=== PATIENT | female | born 1940 | race Caucasian/White ===

== ENCOUNTER 2019-05-10 09:26 | Inpatient (IN) | payer MEDICARE, SELFPAY ==
[2019-05-10] VITALS (26 sets, daily range): BP systolic 149–194; BP diastolic 75–104; PULSE 76–95; RESP 12–24; TEMP 36.4–37.1; O2SAT 95–100; BMI 33.6
--- NOTE | ~2019-05-10 | MR_ITS ---
EXAMINATION: MR brain/brain stem wo/w con EXAM DATE: 05/11/2019 13:04 INDICATION: Slurred speech. Transient ischemic attack. TECHNIQUE: Magnetic resonance imaging (MRI) of the brain/brain stem obtained without contrast. Sagit sheila T1, axial diffusion, gradient echo (T2*), T1, T2, FLAIR sequences obtained. Patient was then inj ected with 19 cc intravenous Multihance contrast. Axial and coronal postcontrast T1 weighted sequence s obtained. There is no prior study for comparison. FINDINGS: Scattered small acute left occipital parietal lobe infarctions. There is no acute hemorrhag e seen on the T2*, a hemosiderin sensitive sequence. No intraparenchymal brain mass lesion. Dilated perivascular spaces. There is mild periventricular and subcortical T2/FLAIR signal hyperintensity, nonspecific but probably related to small vessel ischemic disease (microangiopathy). There are no e xtra-axial collections. Flow voids are seen in the cerebral arteries on the T2-weighted sequences co nsistent with their expected patency. The orbits are unremarkable. Soft tissue is unremarkable. IMPRESSION: 1. Scattered small acute left parieto-occipital lobe infarctions. 2. Mild microangiopathy. Reviewed, dictated and finalized at location A. ORATE AUDITOR
--- NOTE | ~2019-05-10 | US_ITS ---
EXAMINATION: US abdomen complete DATE: 05/12/2019 07:56 INDICATION: Abnormal liver function tests. TECHNIQUE: Multiple grayscale and Doppler ultrasound images of the abdomen were obtained. COMPARISON: CT abdomen and pelvis 05/01/2018 FINDINGS: The visualized portions of the head and body of the pancreas are normal. There is diffuse h epatic steatosis. There is normal flow in main portal vein. The gallbladder is absent. The common bishnu t is dilated to 14 mm. The spleen is normal in size. The kidneys are normal in size. Inferior vena ca va is normal. Abdominal aorta is normal in caliber. IMPRESSION: 1. Diffuse hepatic steatosis. 2. Dilated common duct measuring 14 mm, worsened from 11 mm on 05/01/2018, likely not clinically signi ficant given the normal total bilirubin and alkaline phosphatase on 05/11/2019. Reviewed, dictated and finalized at location A. CLEANING MACHINE TENDER IMPRESSION: 1. Diffuse hepatic steatosis. 2. Dilated common duct measuring 14 mm, worsened from 11 mm on 05/01/2018, likel y not clinically significant given the normal total bilirubin and alkaline phos phatase on 05/11/2019.
--- NOTE | ~2019-05-10 | US_ITS ---
EXAMINATION: US carotid duplex BI EXAM DATE: 05/10/2019 14:15 INDICATION: Speech impairment. Transient ischemic attack. TECHNIQUE: Grayscale, color and pulsed Doppler images of the cervical carotid arteries were obtained . The degree of vessel stenosis is placed in one of the following categories: normal, <50% stenosis, 50-69% stenosis, >=70% stenosis but less than near-occlusion, near-occlusion, or occlusion. Note that percent stenosis relative to normal distal artery lumen diameter is indirectly measured from velocit y measurements as described by Mc, et al. Radiology 2003; 229:340-346. There is no prior study fo r comparison. FINDINGS: RIGHT SIDE: Right common carotid artery peak systolic velocity (PSV in cm/s): 59 Right bulb/internal carotid artery peak systolic velocity (PSV in cm/s): 91 Right internal carotid artery end diastolic velocity (EDV in cm/s): 30 Right ICA/CCA peak systolic ratio: 1.5 Right external carotid artery peak systolic velocity (PSV in cm/s): 69 Right vertebral artery antegrade flow: yes There is no focal plaque identified. LEFT SIDE: Left common carotid artery peak systolic velocity (PSV in cm/s): 57 Left bulb/internal carotid artery peak systolic velocity (PSV in cm/s): 67 Left internal carotid artery end diastolic velocity (EDV in cm/s): 25 Left ICA/CCA peak systolic ratio: 1.2 Left external carotid artery peak systolic velocity (PSV in cm/s): 116 Left vertebral artery antegrade flow: yes There is no focal plaque identified. IMPRESSION: 1. Normal right internal carotid artery. 2. Normal left internal carotid artery. Reviewed, dictated and finalized at location A. INTAKE WORKER
--- NOTE | ~2019-05-10 | CT_ITS ---
EXAMINATION: CT brain wo con EXAM DATE: 05/10/2019 10:04 INDICATION: Slurred speech. TECHNIQUE: Spiral CT of the head was performed without contrast. Axial, coronal and sagittal images were reviewed. The dose-length product (DLP) for this examination was 605.33 mGy-cm. The exposure w as tailored according to patient size, and iterative reconstruction (ASIR) was used as additional dos e reduction technique. There is no prior study for comparison. FINDINGS: There is no acute intraparenchymal hemorrhage. No evidence of intraparenchymal brain mass lesion. No evidence of acute infarction. Please note that initial head CT has limited sensitivity f or small or acute infarctions. There is moderate periventricular and subcortical hypodensity, nonspec ific but probably related to small vessel ischemic disease. There is mild prominence of the sulci a nd ventricles related to cerebral atrophy. There is intracranial carotid arteriosclerosis. There a re no extra-axial collections. There is no mass effect or midline shift. The orbits are unremarkabl e. Soft tissue is unremarkable. The visualized sinuses and mastoid air cells are well aerated. IMPRESSION: 1. No acute intracranial findings. 2. Chronic age related findings. Reviewed, dictated and finalized at location A. CULTURAL SERVICE WORKER
--- NOTE | 2019-05-10 09:37 | ED.NEUROSD ---
HPI - Neuro Symptoms/Deficit General Chief Complaint: Neuro Symptoms/Deficit Stated Complaint: Poss CVA Time Seen by Provider: 05/10/19 09:36 Source: patient and RN notes reviewed Mode of arrival: ambulatory Limitations: no limitations History of Present Illness HPI Narrative: Pt is a 79 y/o female who presents to the ED with c/o difficulty with speech which began at 0800 this morning. Pt states she woke up at 0700 this morning to feed her cats and was at baseline. She was able to to speak and ambulate at 0700 this morning. Pt reports she went back to bed shortly after. However, she states she woke up again at 0800 this morning, but this time was unable to speak. She states she was having difficulty forming words. Pt reports she went to bed again shortly after and woke again at 0900 with improving symptoms. She states she was able to speak again, but is still not at baseline. Pt reports a sensation of a hot spot in her head located at the left-sided ventral side of her head. She states she typically has these episodes of pain in her head similar to this, however, pt reports this current episode feels as there is a bleed occurring. She reports SOB for the past week and a headache, but denies vision changes, chest pain, nausea, vomiting, or numbness in her BLE or BUE. Onset (ago): hour(s) (0800 this morning) Time: 08:00 Last Observed Normal: 07:00 Timing confirmed by: spouse Location: speech History of same: No Quality: improving (improved since onset) Relieving factors: time Exacerbating factors: none Context: sudden onset (awoke with symptoms at 0800) On Anticoagulants: No Associated symptoms: headaches and shortness of breath Related Data Allergies Allergy/AdvReac Type Severity Reaction Status Date / Time Penicillins Allergy Unknown Verified 08/17/11 10:47 Review of Systems Review of Systems: All systems reviewed & are unremarkable except as noted in HPI and below Eyes: Eyes: Denies change in vision Cardiovascular: Cardiovascular: Denies chest pain Respiratory: Respiratory: Reports dyspnea Gastrointestinal: Gastrointestinal: Denies nausea and Denies vomiting Neurologic: Reports Abnormal speech present (difficulty with formulating words), Reports headache(s) and Denies other (numbness in BLE or BUE) PMFSH Past Medical History Medical History (Updated 05/10/19 @ 14:47 by Teresa Urena MD) Depression Diabetes Expressive aphasia Hyperlipidemia Hypertension PVCs (premature ventricular contractions) Right nephrolithiasis Shingles Surgical History Surgical History (Updated 05/10/19 @ 13:43 by Savannah Sommers NP) H/O cystoscopy With placed stent H/O: hysterectomy History of renal stent On the right secondary to kidney stone. Hx of cholecystectomy Laparoscopic 2011 Family History Family History (Updated 05/10/19 @ 13:46 by Savannah Sommers NP) Mother Acute myocardial infarction Diabetes mellitus Hypertension Son Acute myocardial infarction Daughter Thyroid disease Father Cerebrovascular accident Social History Social History (Updated 05/10/19 @ 13:48 by Savannah Sommers NP) Social History: The patient lives with her in [place]. She designates her as her durable power bankruptcy attorney for healthcare. She desires to be a full code. Lifelong nonsmoker. No drug use. She denies any alcohol use. 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 children better son . Smoking status: Never smoker Second hand tobacco smoke exposure: Yes Substance use: never Living arrangements: with family Occupation/Education: retired Gender identity (if verbalized by the patient): Female Comments PCP: Dr. Cornelius Li at [facility] Exam Const: General: cooperative, no acute distress and alert Nutritional Appearance: well nourished Orientation/consciousness: patient oriented x3 Limitations: no limitations HENMT: Mouth: Yes lip normal and Yes moist mucous membranes Eyes
--- NOTE | 2019-05-10 09:50 | ECG_ITS ---
Measurements Intervals [place] Rate: 84 P: 28 CA: 161 QRS: -14 QRSD: 92 T: 19 QT: 358 QTc: 425 Interpretive Statements SINUS RHYTHM DELAYED PRECORDIAL R/S TRANSITION BORDERLINE ECG Electronically Signed On 05-10-2019 10:04:45 MONEY ORDER CLERK by Michele Knapp D.O.
[2019-05-10] MEDS: hydrALAZINE HCL 20 MG/ML VIAL 10 MG IV PUSH (09:53)
[2019-05-10 10:00] LABS: Glucose Point of Care 153 (65-105)
[2019-05-10 10:48] LABS: Basophils Absolute Auto 0.1 K/mm3 (0.0-0.1); Eosinophils Absolute Auto 0.1 K/mm3 (0-0.3); Eosinophils Percent Auto 2.6 % (0-4.4); Hematocrit 46.8 % (37.0-47.0); Hemoglobin 15.4 g/dL (12.0-15.0); Immature Granulocyte Absolute 0.06 K/mm3 (0.00-0.031); Immature Granulocyte Percent A 1.2 % (0-0.5); Lymphocytes Absolute Auto 1.71 K/mm3 (0.9-3.2); Lymphocytes Percent Auto 34.2 % (18.3-44.2); Mean Corpuscular HGB Conc 32.9 g/dl (32-36); Mean Corpuscular Hemoglobin 29.7 pg (26-34); Mean Corpuscular Volume 90.3 fl (80-100); Mean Platelet Volume 10.9 fl (7.4-10.4); Monocytes Absolute Auto 0.4 K/mm3 (0.1-0.6); Monocytes Percent Auto 8.6 % (2.6-8.5); Neutrophils Absolute Auto 2.6 K/mm3 (1.3-6.7); Neutrophils Percent Auto 52.4 % (45.5-73.1); Platelet Count Result 205 k/mm3 (150-375); Red Blood Count 5.18 M/mm3 (4.2-5.4)
[2019-05-10 11:01] LABS: Alanine Aminotransferase 103 U/L (4-35); Albumin Level 4.4 g/dL (3.5-5.1); Alkaline Phosphatase 78 U/L (38-126); Aspartate Amino Transferase 72 U/L (14-36); Bilirubin,Total 0.4 mg/dL (0.2-1.3); Blood Urea Nitrogen 15 mg/dL (7-17); Calcium 9.4 mg/dL (8.4-10.2); Carbon Dioxide 21 mmol/L (22-30); Chloride 105 mmol/L (98-107); Estimated CRCL calculation 78 ml/min; Estimated Glomerular Filt Rate > 60; Glucose 164 mg/dL (65-105); INR 0.9; Prothrombin Time 12.3 Seconds (11.1-14.7); Sodium 137 mmol/L (137-145)
[2019-05-10 11:02] LABS: Partial Thromboplastin Time 25.4 SECONDS (22.3-36.8)
[2019-05-10 11:46] LABS: Add Urine Microscopic? NO; Appearance Urine Clear (Clear); Bilirubin Urine Negative (Negative); Blood Urine Negative (Negative); Color Urine Straw (Yellow); Glucose Urine UA Negative (Negative); Ketones Urine Negative (Negative); Leukocyte Esterase Ur Negative LEU/UL (Negative); Nitrate Urine Negative (Negative); Protein Urine Negative (Negative); Specific Grav Ur 1.014 (1.001-1.035); Urobilinogen Urine Negative mg/dL (<2.0)
[2019-05-10] MEDS: ASPIRIN 81 MG CHEWABLE TABLET 324 MG PO (12:19)
--- NOTE | 2019-05-10 13:36 | PM.IMHP ---
H&P: HPI History of Present Illness Chief complaint: TIA Narrative: Sofia Song is a 79 year old female who has had no previous history of any TIAs or CVAs. She is diabetic and also has a history of having hypertension. The patient tells me that her blood pressure is typically under control with lisinopril. The patient woke up at 7:00 a.m. this morning and had no symptoms was normal. She had no symptoms last night either. Patient fell back to sleep at 7:00 a.m. and then woke back up at 8:00 a.m. where she was unable to articulate. Patient went back to sleep and woke back up at 9:00 a.m. the patient stated that her speech was starting to get somewhat better but not back at her baseline. She has some discomfort in her frontal lobe which she stated is a ?hot spot? in her forehead. She was given an aspirin in the emergency room she said that helped with the discomfort somewhat. She has no changes in her vision and no focal weakness. The patient has difficulty articulating at times. Sometimes she can speak in full sentences but otherwise she has word searching. No slurred speech or facial droop. CT of the brain findings. Chronic age related findings. Due to service 05/10/2019. The patient was given aspirin in the emergency room and also IV hydralazine for blood pressure 194/104. Review of Systems Review of Systems: All systems reviewed & are unremarkable except as noted in HPI and below Constitutional: Constitutional: Reports as per HPI and Reports no additional constitutional complaints Eyes: Eyes: Reports as per HPI, Reports no additional eye complaints and Reports other (She has bilateral cataracts that are not yet extracted.) ENT: Reports system reviewed and no additional complaints, except as documented and Reports Normal hearing present Cardiovascular: Cardiovascular: Reports no additional cardiovascular complaints Respiratory: Respiratory: Reports no additional respiratory complaints and Reports no additional respiratory complaints Gastrointestinal: Gastrointestinal: Reports as per HPI and Reports no additional gastrointestinal complaints Musculoskeletal: Musculoskeletal: Reports no additional musculoskeletal complaints Integumentary/Breasts: Skin/Breast: Reports system reviewed and no additional complaints, except as docu and Reports as per HPI Neurologic: Reports system reviewed and no additional complaints, except as documented, Reports as per HPI and Reports Normal hearing present Psychiatric: Psychiatric: Reports no additional psychiatric complaints and Reports as per HPI Endocrine: Endocrine: Reports no additional endocrine complaints Hematologic/Lymphatic: Hematologic/Lymphatic: Reports no additional hematologic/lymphatic complaints Allergic/Immunologic: Allergic/Immunologic: Reports no additional allergic/immunologic complaints [facility] Past Medical History Medical History (Updated 05/10/19 @ 13:51 by Savannah Sommers NP) Depression Diabetes Expressive aphasia Hyperlipidemia Hypertension PVCs (premature ventricular contractions) Right nephrolithiasis Shingles Surgical History Surgical History (Updated 05/10/19 @ 13:43 by Savannah Sommers NP) H/O cystoscopy With placed stent H/O: hysterectomy History of renal stent On the right secondary to kidney stone. Hx of cholecystectomy Laparoscopic 2011 Family History Family History (Updated 05/10/19 @ 13:46 by Savannah Sommers NP) Mother Acute myocardial infarction Diabetes mellitus Hypertension Son Acute myocardial infarction Daughter Thyroid disease Father Cerebrovascular accident Social History Social History (Updated 05/10/19 @ 13:48 by Savannah Sommers NP) Social History: The patient lives with her in [place]. She designates her as her durable power county attorney for healthcare. She desires to be a full code. Lifelong nonsmoker. No drug use. She denies any alcohol use. 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
--- NOTE | 2019-05-10 13:46 | PC.NURSE ---
pt to ultrasound for carotid doppler study
--- NOTE | 2019-05-10 14:50 | ADMGEN ---
This patient, Sofia Song, was admitted to Medical Room 243-01. Patient/family oriented to hospital policies and general routines including ID bracelet, bed and alarms, visiting hours, pain management, procedures, bathroom and other care routines, personal items, smoking policy, room service/diet, and visiting hours. Valuables list has been completed. Information on how to activate the Rapid Response Team has been discussed. Patient/Family are encouraged to report perceived risks to care and to ask questions if they do not understand what they are told or what they should do.
[2019-05-10] MEDS: lisinopriL 20 MG TABLET PO (17:44)
[2019-05-10 18:05] LABS: Glucose Point of Care 141 (65-105)
[2019-05-10] MEDS: ACETAMINOPHEN 325 MG TABLET 650 MG PO (18:22)
[2019-05-10 22:13] LABS: Glucose Point of Care 232 (65-105)
[2019-05-11] VITALS (9 sets, daily range): BP systolic 144–149; BP diastolic 74–80; PULSE 70–82; RESP 16–18; TEMP 36.1–36.5; O2SAT 96–98
[2019-05-11] MEDS: ACETAMINOPHEN 325 MG TABLET 650 MG PO (04:13)
--- NOTE | 2019-05-11 06:00 | ECHO_ITS ---
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 Summary 1. Left ventricular chamber dimension is normal. 2. Left ventricular systolic function is normal, estimated at 65-70%. 3. There is mildly increased left ventricular wall thickness. 4. Left ventricular septal wall motion is normal. 5. The left ventricular diastolic function is grade I diastolic dysfunction. 6. There is mild aortic valve calcification. 7. There is mild mitral valve regurgitation. 8. There is mild tricuspid valve regurgitation. 9. Mild pulmonary hypertension, estimated pulmonary arterial systolic pressure is 37 mmHg. Left Ventricle Left ventricular chamber dimension is normal. Left ventricular systolic function is normal, estimated at 65-70%. There is mildly increased left ventricular wall thickness. Left ventricular septal wall motion is normal. The left ventricular diastolic function is grade I diastolic dysfunction. Right Ventricle Right ventricular chamber dimension is normal. Right ventricular systolic function is normal. Left Atria Left atrial chamber dimension is normal. Right Atria Right atrial chamber dimension is normal. Atrial Septum Intact interatrial septum visualized by color flow imaging. Aortic Valve The aortic valve is trileaflet. There is mild aortic valve sclerosis. There is no aortic valve stenosis. There is trace aortic valve regurgitation. There is mild aortic valve calcification. Pulmonic Valve The pulmonic valve is normal. There is no pulmonic valve stenosis. There is trace pulmonic regurgitation. Mitral Valve The mitral valve has calcified annulus. There is no mitral valve stenosis. There is mild mitral valve regurgitation. Tricuspid Valve The tricuspid valve leaflets are normal. There is no significant tricuspid valve stenosis. There is mild tricuspid valve regurgitation. Mild pulmonary hypertension, estimated pulmonary arterial systolic pressure is 37 mmHg. Pericardium/Pleural The pericardium appears normal. There is no pericardial effusion. Inferior Vena Cava Normal inferior vena cava with <50% collapse upon inspiration consistent with elevated right atrial pressure, 10 mmHg. Aorta The aortic root size at the sinus of Valsalva is normal. Left Ventricular Outflow Tract Name Value Normal LVOT 2D LVOT Diameter 2.0 cm LVOT Doppler LVOT Peak Gradient 7 mmHg LVOT Mean Gradien
[2019-05-11 06:08] LABS: Basophils Percent Auto 0.6 % (0.2-1.2); Eosinophils Absolute Auto 0.1 K/mm3 (0-0.3); Eosinophils Percent Auto 1.6 % (0-4.4); Hematocrit 41.7 % (37.0-47.0); Hemoglobin 13.8 g/dL (12.0-15.0); Immature Granulocyte Absolute 0.02 K/mm3 (0.00-0.031); Immature Granulocyte Percent A 0.3 % (0-0.5); Lymphocytes Absolute Auto 1.87 K/mm3 (0.9-3.2); Lymphocytes Percent Auto 29.6 % (18.3-44.2); Mean Corpuscular HGB Conc 33.1 g/dl (32-36); Mean Corpuscular Hemoglobin 29.8 pg (26-34); Mean Corpuscular Volume 90.1 fl (80-100); Mean Platelet Volume 11.1 fl (7.4-10.4); Monocytes Absolute Auto 0.6 K/mm3 (0.1-0.6); Monocytes Percent Auto 9.5 % (2.6-8.5); Neutrophils Absolute Auto 3.7 K/mm3 (1.3-6.7); Neutrophils Percent Auto 58.4 % (45.5-73.1); Platelet Count Result 200 k/mm3 (150-375); Red Blood Count 4.63 M/mm3 (4.2-5.4); Red Cell Distribution Width 13.2 % (11.5-14.5); White Blood Count 6.3 K/mm3 (4.5-10.0)
[2019-05-11 06:20] LABS: Alanine Aminotransferase 81 U/L (4-35); Albumin Level 3.8 g/dL (3.5-5.1); Alkaline Phosphatase 61 U/L (38-126); Aspartate Amino Transferase 49 U/L (14-36); Bilirubin,Total 0.6 mg/dL (0.2-1.3); Blood Urea Nitrogen 15 mg/dL (7-17); Carbon Dioxide 19 mmol/L (22-30); Chloride 108 mmol/L (98-107); Estimated CRCL calculation 67 ml/min; Estimated Glomerular Filt Rate > 60; Glucose 157 mg/dL (65-105); Sodium 138 mmol/L (137-145)
[2019-05-11 06:28] LABS: Hemoglobin A1C 7.2 % (<5.7)
[2019-05-11] MEDS: ASPIRIN 81 MG ENTERIC TABLET PO (08:25)
[2019-05-11] MEDS: lisinopriL 20 MG TABLET PO (08:25)
[2019-05-11 08:31] LABS: Glucose Point of Care 135 (65-105)
[2019-05-11 11:46] LABS: Glucose Point of Care 185 (65-105)
--- NOTE | 2019-05-11 13:51 | PM.IMPN ---
Progress Note: A&P Assessment and Plan (1) Expressive aphasia: Code(s): R47.01 - Aphasia Status: Acute Assessment and Plan: Likely secondary to CVA, pt has had stroke work up completed MRI brain, echo, US carotids. Awaiting speech theraphy and neurology consult. Pt can be increased to full dose ASA and home medications to be restarted. (2) Hypertension: Code(s): I10 - Essential (primary) hypertension Status: Chronic Assessment and Plan: Bp appears better on lisinopril 20mg po qdaily, IV hydralazine prn also ordered. BP appears more stable today. (3) Diabetes: Code(s): E11.9 - Type 2 diabetes mellitus without complications Status: Chronic Assessment and Plan: Sliding scale insulin, Aic is 7.2 Pt is on metformin continue home medications. (4) Hyperlipidemia: Code(s): E78.5 - Hyperlipidemia, unspecified Status: Chronic Assessment and Plan: Continue with home medications. Pt is on rosuvastatin 10mg po qdaily from home list, i will restart this. (5) Stroke: Code(s): I63.9 - Cerebral infarction, unspecified Status: Acute Assessment and Plan: MRI brain is positive for small acute left parieto-occipital lobe infarctions. Pt us carotids are negative, ECHO shows EF of 65% grade 1 diastolic heart failure. Pt awaiting neurology consultation. Pt awaiting speech theraphy. Bp is 147/ 80 today, much improved. Pt still feels her speech is not clear at times. Hopeful discharge home tomorrow, as pt still feels speech problems today. Subjective Date/time seen: 05/11/19 13:51 Interval history: Sofia Song is a 79 year old female who has had no previous history of any TIAs or CVAs. She is diabetic, also has history of htn and hld. Pt states she felt pain in the left side of her face and eye and found difficulty articulating words yesterday around 9 am, pts bp was also found to be high on admission. Pt otherwise denies focal weakness of her arms or legs. or any swallow problems. Pts MRI brain is positive for small acute left parieto-occipital lobe infarctions. Pt us carotids are negative, ECHO shows EF of 65% grade 1 diastolic heart failure. Pt awaiting neurology consultation. Pt awaiting speech theraphy. Bp is 147/ 80 today. Review of Systems Review of Systems: All systems reviewed & are unremarkable except as noted in HPI and below Cardiovascular: Cardiovascular: Denies no additional cardiovascular complaints Respiratory: Respiratory: Denies no additional respiratory complaints Gastrointestinal: Gastrointestinal: Denies no additional gastrointestinal complaints Neurologic: Reports Abnormal speech present, Denies confusion, Denies vertigo, Reports headache(s), Denies focal weakness, Denies paresthesias, Denies tremor(s) and Denies weakness Psychiatric: Psychiatric: Denies anxiety and Denies confusion Exam Const: General: cooperative and healthy appearing; No in distress Nutritional Appearance: overweight Orientation/consciousness: oriented to person HENMT: Head: normal to inspection Resp: Effort & Inspection: no respiratory distress Auscultation: no rhonchi and no wheezes Cardio: Rate: regular rate Rhythm: regular rhythm GI: Inspection: normal to inspection GI Palp: No abdominal tenderness, No Guarding due to palpation present (GI) and No Hepatomegaly present Auscultation: normal bowel sounds Neuro: General: oriented to person, tone normal, no focal motor deficits and No confusion Cranial nerves: Yes Equal, round and reactive pupils present Speech: aphasia (expressive aphasia earlier today ) Motor exam (neuro): 5/5 motor strength present throughout Sensory Exam: normal sensation Objective Data Vital Signs Vital Signs: Vital Signs - 24 hr 05/10/19 14:31 05/10/19 15:01 05/10/19 15:21 Temperature 37.1 C Pulse Rate 78 78 76 Respiratory Rate 16 18 Blood Pressure 160/98 H 175/82 H Pulse Oximetry 99 100 05/10/19
--- NOTE | 2019-05-11 14:57 | CONS_ITS ---
DATE OF CONSULTATION: HISTORY: This 79 years old right-handed female has been admitted to [facility] through the emergency room for the complaints of uncontrolled blood pressure. The patient does have ongoing history of diabetes mellitus and hypertension. She woke up in the morning with no symptomatology, but she fell back to sleep at 7:00 a.m. and then woke back at 8 a.m. when she was unable to articulate. Her speech was starting to get somewhat better subsequently, but not still to the baseline. She complained of discomfort in her head, just like a hot spot in her forehead. She was given aspirin in the emergency room. She has no history of changes in her vision. No history of weakness of 1 side or other side. She was able to speak in full sentences. CT of the brain was done in the emergency room, which was negative. She was given aspirin in the ER along with the IV hydralazine for the control of the blood pressure. Rest of the history was unremarkable. PAST HISTORY: She does have ongoing history of 1. Depression. 2. Diabetes mellitus. 3. Hyperlipidemia. 4. Hypertension. 5. Premature ventricular contraction. 6. Right nephrolithiasis. 7. Shingles. SURGICAL HISTORY: In the past, she has undergone hysterectomy, cholecystectomy, and renal stent for the renal stone in addition to the laparoscopic cholecystectomy. SOCIAL HISTORY: She is a never smoker. Does not drink. ALLERGIES: SHE IS ALLERGIC TO PENICILLIN. PHYSICAL EXAMINATION: VITAL SIGNS: Evaluation revealed her to be afebrile with pulse of 95, respiration 20, blood pressure 194/104. GENERAL: Physical examination was normal. HEENT: Head normocephalic with no cranial bruit. Ear, nose, throat examination was normal. NECK: Supple with no cervical bruit. No thyromegaly. No lymphadenopathy. HEART: Regular. LUNGS: Clear. ABDOMEN: Soft. NEUROLOGICAL: She was awake, alert, and oriented x3. Speech not dysphasic, not dysarthric, not dysphonic. Pupils round, regular. Esparza of vision full. Extraocular movements full. Face symmetrical. Tongue midline. Motor examination revealed her to have fairly normal strength in upper and lower extremities. Reflexes symmetrical. Plantars downgoing. No evidence of gross sensory or cerebellar deficit. LABORATORY DATA: Evaluation up until now included the CT scan of the head, which was negative for the bleed. Doppler study of the carotid negative bilaterally, at present she is receiving metformin, lisinopril, and calcium carbonate with vitamin D. IMPRESSION: Most likely transient ischemic attack, but we will obtain the further studies and then accordingly. MYLES VASQUEZ M.D. DRAFTING LAYOUT WORKER DRAFTING LAYOUT WORKER D I MT: [place]
[2019-05-11] MEDS: metFORMIN HCL XR 500 MG TAB.SR.24H PO (15:54)
[2019-05-11] MEDS: ROSUVASTATIN 10 MG TABLET PO (15:54)
[2019-05-11] MEDS: ASPIRIN 325 MG TABLET PO (15:54)
[2019-05-11 19:24] LABS: Glucose Point of Care 117 (65-105)
[2019-05-11 20:58] LABS: Glucose Point of Care 208 (65-105)
[2019-05-12] VITALS: PULSE 70
[2019-05-12 04:00] VITALS: PULSE 67
[2019-05-12 06:00] VITALS: BP 129/72; PULSE 77; RESP 20; TEMP 35.8; O2SAT 99
[2019-05-12 08:00] VITALS: PULSE 96
[2019-05-12 08:40] LABS: Blood Urea Nitrogen 16 mg/dL (7-17); Calcium 9.4 mg/dL (8.4-10.2); Carbon Dioxide 22 mmol/L (22-30); Chloride 105 mmol/L (98-107); Estimated CRCL calculation 67 ml/min; Estimated Glomerular Filt Rate > 60; Glucose 154 mg/dL (65-105); Sodium 142 mmol/L (137-145)
[2019-05-12 09:20] LABS: Glucose Point of Care 151 (65-105)
[2019-05-12 10:11] LABS: Cholesterol 194 mg/dL (0-200); HDL Direct 50 mg/dL; Triglycerides 202 mg/dL (<150)
[2019-05-12 10:22] LABS: LDL Cholesterol Direct 109 mg/dL
--- NOTE | 2019-05-12 10:48 | PM.CNCAR ---
Assessment and Plan Additional Plan 79-year-old lady with hypertension and diabetes presenting 48 hours ago with neurological symptoms and evidence of a small ischemic CVA on MRI. There is very low risk that this is a cardioembolic event in my opinion she is in sinus rhythm has no evidence of atrial fibrillation no structural cardiac abnormalities on transthoracic echo. Gilberto in my opinion would be a very low yield exam and is not necessary unless she has recurrent events despite anti-platelet therapy. It should be noted that she was not taking her aspirin at the time of this event. Would initiate anti-platelet therapy either with aspirin or clopidogrel and she should be followed by her PCP was currently a at the [facility] [place]. If you have questions regarding this opinion please let me Dario Bergman MD [facility] History of Present Illness History of Present Illness Consult date/time: Date of service: 05/12/19 10:48 Reason For Visit: TIA Narrative: This is a very pleasant 79-year-old lady am seeing at the request of the hospitalist to render an opinion as to whether or not a transesophageal echocardiogram should be performed. Patient has no history of cardiac problems in the past other than a history of occasional premature ventricular complexes. She had gets her medical care downtown at [place] in the [facility] with primary care physician. She has previously followed with an manager project at that hospital, Dr. Denson who was seeing her because of PVCs. He indicated that they found nothing else wrong with the heart other than PVCs and the seem to be benign and no specific treatment or follow-up was recommended. He sits followed her for a bout fiber 6 years but not for the last couple of years. The patient was in her usual state of good health when she was admitted Wednesday of this week at [facility] after having expressive aphasia occur in the morning. She apparently awakened at about 8:00 a.m. in the morning and was having difficulty with nonsense speech from what she is describing. It says in the chart she was unable to speak but the patient states she was able to phonate but was not making any sense. She states that she otherwise had no symptoms she went to bed she got up at about 9:00 a.m. in the morning an hour later and the speech was better, not totally normal but she felt unwell and other nonspecific way so she came to the emergency room to be evaluated. She was admitted to the hospitalist service. On telemetry since admission she has been in sinus rhythm with no evidence of atrial fibrillation. She has no history of atrial fibrillation as I mentioned above. She denies any other cardiovascular symptoms such as exertional dyspnea chest pain orthopnea PND edema palpitations or syncope. MRI of the brain has demonstrated evidence of small ischemic CVA. An echocardiogram was done yesterday and interpreted by Dr. Sullivan with good left ventricular function, no significant valvular disease and normal atrial size. Mitral valve anatomy looked normal according to the report. Review of Systems Constitutional: Constitutional: Reports no additional constitutional complaints Eyes: Eyes: Reports no additional eye complaints ENT: Reports system reviewed and no additional complaints, except as documented Cardiovascular: Cardiovascular: Reports no additional cardiovascular complaints Respiratory: Respiratory: Reports no additional respiratory complaints Gastrointestinal: Gastrointestinal: Reports heartburn Genitourinary: Genitourinary: Reports no additional female genitourinary complaints Musculoskeletal: Musculoskeletal: Reports no additional musculoskeletal complaints Integumentary/Breasts: Skin/Breast: Reports system reviewed and no additional complaints, except as docu Neurologic: Reports as per HPI Endocrine: Endocrine: Reports no additional endocrine complaints Hematologic/Lymph
[2019-05-12 12:00] VITALS: PULSE 73
[2019-05-12] MEDS: ROSUVASTATIN 10 MG TABLET PO (13:01)
[2019-05-12] MEDS: metFORMIN HCL XR 500 MG TAB.SR.24H PO (13:02)
[2019-05-12] MEDS: lisinopriL 20 MG TABLET PO (13:02)
--- NOTE | 2019-05-12 13:02 | WPDNEUROPN ---
Progress Note: A&P Assessment and Plan (1) Stroke: Code(s): I63.9 - Cerebral infarction, unspecified Status: Acute (2) Transient cerebral ischemia: Qualifiers: Transient cerebral ischemia type: unspecified Qualified Code(s): G45.9 - Transient cerebral ischemic attack, unspecified Code(s): G45.9 - Transient cerebral ischemic attack, unspecified Status: Acute (3) Expressive aphasia: Code(s): R47.01 - Aphasia Status: Acute (4) Hypertension: Code(s): I10 - Essential (primary) hypertension Status: Chronic (5) Diabetes: Code(s): E11.9 - Type 2 diabetes mellitus without complications Status: Chronic (6) Hyperlipidemia: Code(s): E78.5 - Hyperlipidemia, unspecified Status: Chronic Additional Plan discussed,will need plavix 75 mg daily and follow up in the office Review of Systems Review of Systems: All systems reviewed & are unremarkable except as noted in HPI and below Exam Const: General: comfortable and no acute distress Nutritional Appearance: average body habitus HENMT: Head: normocephalic Eyes: General: appearance normal, both eyes and all related structures Neck: Neck: full ROM and no lymphadenopathy Thyroid: thyroid normal Carotids: normal carotid upstroke Resp: Effort & Inspection: normal respiratory effort and able to speak in complete sentences Auscultation: clear to auscultation bilaterally Cardio: Rate: regular rate Rhythm: regular rhythm GI: Auscultation: normal bowel sounds Neuro: General: oriented to time and moves all extremities Cranial nerves: Yes CN's II-XII intact bilaterally, Yes Equal, round and reactive pupils present, Yes Nystagmus not present, Yes Normal facial strength present, Yes Midline tongue present, Yes Symmetric palate elevation present, Yes Ability to bilaterally rotate head present and Yes Ability to bilaterally elevate shoulders present Speech: normal speech Deep tendon reflexes (DTR's): Right triceps reflex intensity grade: 1+, Left triceps reflex intensity grade: 1+, Rt Biceps (C5, C6): 1+, Left biceps reflex intensity grade: 1+, Right brachioradialis reflex intensity grade: 1+, Left brachioradialis reflex intensity grade: 1+, Right patellar reflex intensity grade: 1+, Left patellar reflex intensity grade: 1+, Right ankle reflex intensity grade: 1+ and Left ankle reflex intensity grade: 1+ Plantar Reflex Responses: downgoing: bilateral Coordination: [id number] test normal Psych: Affect: normal affect Objective Data Vital Signs Vital Signs: Vital Signs - 24 hr 05/11/19 14:00 05/11/19 16:00 05/11/19 20:00 Temperature 36.2 C L Pulse Rate 71 76 82 Respiratory Rate 16 16 Blood Pressure 149/80 H Pulse Oximetry 98 98 05/11/19 22:00 05/12/19 00:00 05/12/19 04:00 Temperature 36.1 C L Pulse Rate 82 70 67 Respiratory Rate 18 Blood Pressure 144/74 H Pulse Oximetry 96 05/12/19 06:00 05/12/19 08:00 05/12/19 12:00 Temperature 35.8 C L Pulse Rate 77 96 73 Respiratory Rate 20 Blood Pressure 129/72 Pulse Oximetry 99 Intake/Output Intake/Output: Intake & Output 05/09/19 05/10/19 05/11/19 05/12/19 23:59 23:59 23:59 23:59 Intake Total 580 2760 440 Output Total 400 2100 2 Balance 180 660 438 Meds/Results Medications: Active Medications Generic Name Dose Route Start Last Admin Trade Name Freq PRN Reason Stop Dose Admin Acetaminophen 650 mg 05/10/19 17:50 05/11/19 04:13 Tylenol Tablet PO 650 mg Q4H PRN Administration Headache Aspirin 81 mg 05/11/19 09:00 05/11/19 08:25 Aspirin Ec PO 81 mg QAM [facility] Administration Aspirin 325 mg 05/11/19 08:00 05/11/19 15:54 Aspirin PO 325 mg DAILY@0800 [facility] Administration Butalbital/Aspirin/Caffeine 1 cap 05/10/19 13:36 Fioricet Capsule PO Q4H PRN Pain Rated 4-6 Calcium Carbonate 500 mg 05/10/19 09:00 05/11/19 08:25 Os-Colt 500 +D Tablet PO 5
[2019-05-12 13:08] LABS: Glucose Point of Care 140 (65-105)
--- NOTE | 2019-05-12 13:37 | PM.DS ---
DS: Diagnosis Admitting Diagnosis Admitting Diagnosis: Aphasia Discharge Diagnosis (1) Stroke: Code(s): I63.9 - Cerebral infarction, unspecified Status: Acute Assessment and Plan: MRI brain is positive for small acute left parieto-occipital lobe infarctions. Pt us carotids are negative, ECHO shows EF of 65% grade 1 diastolic heart failure. She was switched from aspirin to plavix. Pt was seen by ST for aphasia and they recommend outpt therapy. Pt was given a holiter monitor to check for paroxysmal atrial fibrillation. Seen by cardiology who did not recommend BRYNN. (2) Expressive aphasia: Code(s): R47.01 - Aphasia Status: Acute (3) Hypertension: Code(s): I10 - Essential (primary) hypertension Status: Chronic Assessment and Plan: Continue lisinopril outpt. (4) Diabetes: Code(s): E11.9 - Type 2 diabetes mellitus without complications Status: Chronic Assessment and Plan: Sliding scale insulin, A1c is 7.2 Pt is on metformin at home. (5) Hyperlipidemia: Code(s): E78.5 - Hyperlipidemia, unspecified Status: Chronic Assessment and Plan: Pt hadn't been taking her crestor. (6) Hepatic steatosis: Code(s): K76.0 - Fatty (change of) liver, not elsewhere classified Status: Acute Assessment and Plan: slightly elevated AST 49 and ALT 81. pt educated on weight loss. hepatitis seems less likely but should f/u with pcp. DS: Summary Hospital Course Reason for hospitalization: aphasia Hospital Course: Patient is a 79-year-old female who presented emergency room for expressive aphasia. Temperature 97.5, pulse 95, respiratory rate 20, blood pressure 194/104, pulse ox 99 on room air. White blood cell count normal. Hemoglobin 15.4. BMP within normal limits with the exception of random glucose 164 and CO2 21. EKG showed sinus rhythm. Head CT was negative for acute process. Carotid studies were normal. Showed scattered small acute left parietal occipital lobe infarctions. Pt had not been taking her aspirin regularly and quit taking her statin. She was educated to continue taking these. She was sent home on an event monitor to assess for paroxysmal atrial fibrillation. Patient had no deficits with PT and OT but would benefit from speech therapy outpatient. She did have slightly elevated liver enzymes and a right upper quadrant ultrasound was done which showed hepatic steatosis which she says she has had in the past. Educated about weight loss. overall, the patient had improvement. Patient was educated about the worrisome signs and symptoms come back to emergency room for was discharged in stable condition Status at Discharge Overall status at discharge: patient is progressing back to baseline Time Spent with Patient Time attestation: Total time spent providing and/or coordinating discharge services: 32 minutes Time spent: Greater than 30 minutes Exam Narrative: Exam Narrative: Vitals: Temperature 96.4?, blood pressure 129/72, pulse ox 99 on room air, pulse 73, respiratory 20 General: Well-developed well-nourished patient resting comfortably in bed in no acute distress Neuro: Alert and oriented x4. No aphasia noted. Some delay with word-finding. Cranial nerves 2-12 intact. Equal strength upper extremity 5/5. HEENT: Normocephalic, neck supple CV: Regular rate and rhythm. One small run of V-tach(4 beats) which was asymptomatic. Resp: CTA Abd: Soft, non-distended. No palpable pain in all four quadrants. Positive bowel sounds. Extremities: no erythema or swelling of the lower extremities DS: Data Data Completed and Pending Labs on day of discharge: Labs from last 24 hours 05/12/19 05/12/19 05/12/19 13:04 09:12 08:15 Sodium Potassium Chloride Carbon Dioxide BUN Creatinine Estim Creat Clear Calc Estimated GFR Glucose POC Capillary Glucose 140 H 151 H Calcium Triglycerides 202 H
--- NOTE | 2019-05-12 15:44 | PCSTNOTE ---
At 14:00 hours pt was seen by ST but documentation system was down. Pt was seen for direct ST minutes for 20 minutes. Pt was alert and oriented x3. She was able to speak about her family with min to no word finding challenges noted. Pt completed naming tasks 5/5 with 100% accuracy, was able to make up a sentence given a word with 100% accuracy and was able to read a fairly complex paragraph from her discharge instructions with no errors. Her speech was clear and intelligible. Pt reported she did have some vision challenges when reading her text on her phone. Patient was educated on possible right side neglect and advised that if she found she was not able to return to previous activities such as reading and managing her finances that she may want to consider outpatient ST. In this session, speech and language skills appear to be within functional limits. It should be noted she was eating lunch upon arrival and coughing was noted x2-3. Pt denied cough being related to the meal but educated to watch for further s/s related to risk for aspiration.
== END 2019-05-12 15:06 | disposition home or self-care (01) | DRG 66 ==
LOC: ANHED 12:24 → ANH3MED 12:36 → ANH2MED 12:59
PROVIDERS: Family Medicine; Nurse Practitioner; Physician Assistant; Admitting Provider Internal Medicine; Emergency Provider Emergency Medicine; Visit Provider Internal Medicine
DX: I63.50 Cerebral infarction due to unspecified occlusion or stenosis of unspecified cerebral artery (principal); R47.01 Aphasia; E11.9 Type 2 diabetes mellitus without complications; I10 Essential (primary) hypertension; F32.9 Major depressive disorder, single episode, unspecified; Z87.442 Personal history of urinary calculi; Z90.710 Acquired absence of both cervix and uterus; E78.5 Hyperlipidemia, unspecified; Z90.49 Acquired absence of other specified parts of digestive tract
CPT/HCPCS: 36415; 70450; 70553; 76700; 80048; 80053; 80061; 81003; 82948; 83036; 83735; 84443; 85025; 85610; 85730; 92507; 92523; 93005; 93306; 93880; 96374; 97165; 99285; A9270; A9577; G0378; J0360

== ENCOUNTER 2019-11-23 08:03 | Outpatient (CLI) | payer MEDICARE, SELFPAY ==
--- NOTE | ~2019-11-23 | US_ITS ---
EXAMINATION: US abdomen limited EXAM DATE: 11/23/2019 09:10 INDICATION: Elevated liver function tests. TECHNIQUE: Multiple grayscale and Doppler images of the abdomen right upper quadrant were obtained (b y a technologist who performed the scan) and subsequently reviewed. Comparison is made to prior exami nation from 05/12/2019. FINDINGS: The pancreatic head and body are normal in appearance. The pancreatic tail is not visualized. There is echogenic liver parenchyma, hepatic steatosis. There are no focal liver lesions identified. Th ere is no evidence of intrahepatic biliary duct dilation. Portal venous flow was seen in the hepatop edal, normal direction and has normal Doppler waveform. No right-sided hydronephrosis. Common bile duct measures 13 mm, which is normal. The gallbladder fossa is unremarkable. IMPRESSION: 1. Hepatic steatosis. Reviewed, dictated and finalized at location B. IMPRESSION: 1. Hepatic steatosis.
== END 2019-11-23 08:04 | disposition home or self-care (01) ==
PROVIDERS: Visit Provider Family Medicine
DX: R79.89 Other specified abnormal findings of blood chemistry (principal); K76.0 Fatty (change of) liver, not elsewhere classified
CPT/HCPCS: 76705

== ENCOUNTER 2020-02-01 07:48 | Outpatient (CLI) | payer MEDICARE, SELFPAY ==
--- NOTE | ~2020-02-01 | MR_ITS ---
EXAMINATION: MRA brain wo con DATE: 02/01/2020 09:07 INDICATION: Speech deficit. Abnormal findings on diagnostic imaging of head. TECHNIQUE: Magnetic resonance angiography (MRA) of the brain was performed without intravenous contra st with T1-weighted SPGR by the 3D [id number] technique. Maximum intensity projection 3D-reconstr uctions were obtained. COMPARISON: Brain MRI 02/01/2020 FINDINGS: Left vertebral artery is dominant. There is no significant stenosis of basilar artery or the posterio r cerebral arteries. There is no significant stenosis of the intracranial internal carotid arteries o r anterior or middle cerebral arteries. Right A1 anterior cerebral artery segment is small, a normal variant. Anterior communicating artery is normal. The posterior communicating arteries are normal. Th ere is an old infarct in left parietal occipital region. IMPRESSION: 1. Old infarct in left parietal occipital region. 2. No aneurysm or significant intracranial arterial stenosis. Reviewed, dictated and finalized at location A.
--- NOTE | ~2020-02-01 | MR_ITS ---
EXAMINATION: MR brain/brain stem wo con DATE: 02/01/2020 09:08 INDICATION: Abnormal findings on diagnostic imaging of head. Speech disturbance. TECHNIQUE: Magnetic resonance imaging (MRI) of the brain and brainstem was performed without intraven ous contrast. Sequences included sagittal and axial T1-weighted FSE, axial diffusion-weighted FS EPI, axial T2*-weighted GRE, axial T2-weighted FLAIR Propeller, and axial T2-weighted Propeller. Apparent diffusion coefficient (ADC) maps were created. COMPARISON: Brain MRI 05/11/2019, head CT 05/10/2019 FINDINGS: There are scattered areas of nonspecific increased T2-weighted signal intensity in the cere bral white matter. There are old infarcts in left parietal occipital region. There is no intracranial hemorrhage, acute infarction, or abnormal intracranial mass lesion. The ventricles are normal in siz e. There is mild mucosal thickening in the ethmoid sinuses. The orbits are normal. The mastoid air ce lls are normal. IMPRESSION: 1. Old infarcts in left parietal occipital region. 2. Stable moderate nonspecific cerebral white matter disease, which likely represents chronic small v essel ischemic disease. Reviewed, dictated and finalized at location A. IMPRESSION: 1. Old infarcts in left parietal occipital region. 2. Stable moderate nonspecific cerebral white matter disease, which likely repr esents chronic small vessel ischemic disease.
== END 2020-02-01 07:49 | disposition home or self-care (01) ==
DX: R93.0 Abnormal findings on diagnostic imaging of skull and head, not elsewhere classified (principal); R47.9 Unspecified speech disturbances; Z86.73 Personal history of transient ischemic attack (TIA), and cerebral infarction without residual deficits
CPT/HCPCS: 70544; 70551

== ENCOUNTER 2020-02-22 08:08 | Outpatient (CLI) | payer MEDICARE, SELFPAY ==
--- NOTE | ~2020-02-22 | MM_ITS ---
EXAMINATION: MM screening [facility] BI w mariam HISTORY: Screening mammogram TECHNIQUE: Craniocaudal and mediolateral oblique 3-D tomosynthesis images were obtained and synthetic 2-D images were generated. CAD analysis was submitted and interpreted. COMPARISON: 08/08/2015, 05/17/1949, 03/20/2013 BREAST PARENCHYMAL COMPOSITION: There are scattered areas of fibroglandular density. FINDINGS: There is no evidence of suspicious mass, calcification, or architectural distortion to sugg est malignancy in either breast. There has been no suspicious interval change. IMPRESSION: 1. No mammographic evidence of malignancy. 2. Recommend routine screening mammography in one year. BI-RADS Category 1: Negative Reviewed, dictated and finalized at location A. IAC TECH
== END 2020-02-22 08:09 | disposition home or self-care (01) ==
LOC: ANHIMG 08:12
PROVIDERS: Visit Provider Family Medicine
DX: Z12.31 Encounter for screening mammogram for malignant neoplasm of breast (principal)
CPT/HCPCS: 77063; 77067